=== PATIENT | female | born 1970 | race Caucasian/White ===

== ENCOUNTER 2017-01-12 12:41 | Outpatient (CLI) | payer OTHER ==
--- NOTE | 2017-01-12 15:33 | XRAY Report ---
CHEST TWO VIEWS: 01/12/2017 CLINICAL HISTORY: Cough and wheezing. COMPARISON: Chest CT of 03/17/2011. FINDINGS: The heart is top normal in size. The lungs are clear. There is no pleural fluid or pneumot horax. Bony structures are negative for age. IMPRESSION: NEGATIVE TWO VIEW CHEST X-RAY FOR AGE. JOB #: [id number] EXT JOB #:[id number]
== END 2017-01-12 12:42 | disposition home or self-care (01) ==
LOC: DI 12:41
PROVIDERS: ATTEND Physician Assistant
DX: R05 Cough (principal); R06.2 Wheezing
CPT/HCPCS: 71020

== ENCOUNTER 2019-10-06 15:09 | Outpatient (CLI) | payer OTHER | END 2019-10-06 15:10 | disposition home or self-care (01) | LOC: LAB 15:09 | PROVIDERS: ATTEND Surgery | DX: Z01.818 Encounter for other preprocedural examination (principal); K61.0 Anal abscess | CPT/HCPCS: 81599 ==

== ENCOUNTER 2019-10-10 06:31 | Day surgery (SDC) | payer OTHER ==
[~2019-10-10 06:31] MED LIST: CEFAZOLIN SODIUM IN 0.9 % NACL 2 GM/100 ML BAG IV ONE
[2019-10-10] MEDS ORDERED: KETOROLAC 30 MG/ML VIAL IVP ONE (06:32)
[2019-10-10] MEDS ORDERED: fentaNYL 100 MCG/2 ML VIAL IVP ONE (06:32)
[2019-10-10] MEDS ORDERED: MIDAZOLAM 2 MG/2 ML VIAL IVP ONE (06:32)
[2019-10-10] MEDS ORDERED: PROPOFOL 200 MG/20 ML VIAL IVP ONE (06:32)
[2019-10-10] MEDS ORDERED: LACTATED RINGERS 1,000 ML IV ONE ×2 (06:45→09:26)
--- NOTE | 2019-10-10 07:14 | ANESTHESIA ---
Pre-Anesthesia VS, & Labs - Diagnosis recurrent perianal abscess - Procedure exam under anesthesia, possible banding and/or seton placement Height 5 ft 7 in Weight (kg) 127 kg Body Mass Index 42.0 - NPO >8 hours - Is Patient ?: No - Lab Results Current Lab Results: Laboratory Tests 10/10/19 06:52: POC Whole Bld Glucose 231 H Home Medications and Allergies Home Medications: Ambulatory Orders Insulin Glargine,Hum.rec.anlog [Toujeo Max Solostar] 160 unit SQ DAILY 10/03/19 Multivitamin 1 each PO DAILY 10/03/19 Temazepam [Restoril] 30 mg PO QPM PRN 10/03/19 Albuterol Sulfate [Ventolin Hfa] 2 puffs IH Q4H PRN 05/12/14 Metformin HCl 1,000 mg PO BID 05/12/14 Telmisartan [Micardis] 10 mg PO QPM 05/12/14 Insulin Glargine,Hum.rec.anlog [Toujeo Max Solostar] 160 unit SQ DAILY 10/03/19 Multivitamin 1 each PO DAILY 10/03/19 Temazepam [Restoril] 30 mg PO QPM PRN 10/03/19 Allergies/Adverse Reactions: Allergies Allergy/AdvReac Type Severity Reaction Status Date / Time trazodone Allergy Severe Nausea Verified 10/03/19 15:37 hydromorphone HCl * AdvReac Severe Nausea/Vomm Verified 05/12/14 08:48 [From Dilaudid] iting Anes History & Medical History - Anesthetic History Anesthesia Complications: reports: No previous complications - Medical History Cardiovascular: reports: Hypertension, High cholesterol Pulmonary: reports: Asthma Gastrointestinal: reports: None Urinary: reports: None Musculoskeletal: reports: None Endocrine/Autoimmune: reports: Type 2 diabetes Skin: reports: None Smoking Status: Never smoker - Surgical History General: Other Gynecologic: section, Dilation and currettage, Hysterectomy Exam General: Alert Dental: WNL Mouth Opening: Greater than 4 Fingerbreadths Mallampati classification: II Thyromental Distance: greater than 6 cm Respiratory: Lungs clear Cardiovascular: Regular rate, Normal S1, Normal S2 Mental/Cognitive Status: Alert/Oriented X3 Plan Anesthesia Type: General, MAC Consent for Procedure(s) Verified and Reviewed: Yes Code Status: Attempt Resuscitation ASA classification: 3-Severe systemic disease Is this case an emergency?: No
[2019-10-10] MEDS ORDERED: LIDOCAINE 1%-EPI 1:100000 20 ML MDV ONE (07:18)
[2019-10-10] MEDS ORDERED: BUPIVACAINE 0.5% PF 30 ML VIAL ONE (07:18)
[2019-10-10] MEDS ORDERED: INSULIN REGULAR HUMAN 100 UNIT/1 ML 10 ML MDV ONE (07:26)
[2019-10-10] MEDS ORDERED: INSULIN REGULAR HUMAN 100 UNIT/1 ML 10 ML MDV IVP ONE (07:26)
[2019-10-10] MEDS ORDERED: BUPIVACAINE 0.5% PF 30 ML VIAL INFIL ONE (08:28)
[2019-10-10] MEDS ORDERED: LIDOCAINE 1%-EPI 1:100000 30 ML MDV SUBQ ONE (08:28)
[2019-10-10] MEDS ORDERED: LIDOCAINE OINTMENT 5% 35.44 GM TUBE TOP STA (08:43)
[2019-10-10] MEDS ORDERED: LIDOCAINE 2% URO-JET 5 ML SYRINGE UR ONE (08:45)
--- NOTE | 2019-10-10 08:58 | OPERATIVE REPORT ---
Operative Report - General Procedure Date: 10/10/19 Planned Procedure: Examination under anesthesia with indicated procedure. Pre-Op Diagnosis: Recurrent perianal abscess Procedure Performed: Examination under anesthesia with external hemorrhoidectomy and incision and drainage of cystic lesion Post Op Diagnosis: Perianal inclusion cyst, enlarged and prolapsing external hemorrhoid - Procedure Note Primary Surgeon: Aram Anesthesia Provider: VERO Spence Anesthesia Technique: Local, MAC Pathology: Portions of hemorrhoidal tissue to path in formalin Estimated Blood Loss (mL): 25 Indications: Recurrent perianal abscess and pain Findings: Enlarged and prolapsing external hemorrhoid with associated inclusion cyst Additional inclusion cyst 3 cm from the hemorrhoid. No evidence of perianal fistula Complications: None apparent - Other Other Information/Narrative: After obtaining informed consent, the patient is brought to the operating room and placed in the supine position on the operating table. Following successful induction of deep sedation with monitored anesthesia care, the patient's legs were placed in Pacheco stirrups and the perineal and perianal area were prepped and draped in the standard surgical fashion. A timeout was held per scope protocol. All elements of the surgical safety checklist were followed before, during, and after the procedure. We began the procedure by infiltrating a mixture of local anesthetics in and around to the anus and perianal region.Nation revealed a cystic structure at the 7:00 radian approximately 3 cm from the anal canal. This was opened sharply draining a small amount of purulent fluid. Further examination revealed the nodular area that the patient had pointed out as the site of concern and pain. This area was probed extensively with a anal probe keeping the speculum in the anal canal. We were not able to identify any opening within the anal canal itself. The opening seem to lead to a superficial cystic structure within the dermis of the skin. This was associated with a fairly large and scarred appearing hemorrhoid that prolapsed. I elected to perform an external hemorrhoidectomy and to take the entire cystic structure with hemorrhoidectomy. This was done by applying a chromic suture at the apex of the hemorrhoid. The anoderm was then opened and the vein carefully dissected free from the dermal tissue and the underlying muscle we extended it out laterally and an elliptical incision was created around the cystic structure to include it within the specimen. The wound was checked for hemostasis. The chromic suture was used to close the anoderm and extended onto the perianal skin for approximately 1 cm to close the open incision there. The wound was then checked for hemostasis. It was irrigated with warm saline solution and aspirated free of all fluid. A Gelfoam and did became pack was placed in the anal canal. The open site in the perianal skin was packed with antibiotic impregnated gauze. Dry dressings were applied. All sponge, needle, and instrument counts were correct at the conclusion of the case. The patient was allowed awaken anesthesia without difficulty and taken to the postanesthesia care unit in good condition.
[2019-10-10] MEDS ORDERED: ONDANSETRON 4 MG/2 ML VIAL ONE (09:27)
[2019-10-10 09:47] VITALS: BP 104/55
[2019-10-10] MEDS ORDERED: LIDOCAINE-MPF 2% 5 ML VIAL IM ONE (18:29)
== END 2019-10-10 06:32 | disposition home or self-care (01) ==
LOC: SDS 06:31
PROVIDERS: ATTEND Surgery
PROC: 06BY3ZC Excision of Hemorrhoidal Plexus, Percutaneous Approach (ICD-10-PCS; principal; 2019-10-10 07:30)
DX: K61.0 Anal abscess (principal); L72.0 Epidermal cyst; K64.8 Other hemorrhoids; E66.9 Obesity, unspecified; Z68.41 Body mass index [BMI] 40.0-44.9, adult; I10 Essential (primary) hypertension; E11.9 Type 2 diabetes mellitus without complications; Z79.4 Long term (current) use of insulin
CPT/HCPCS: 46050; 46999; A9270; J0690; J1815; J7120

== ENCOUNTER 2020-02-17 11:50 | Outpatient (CLI) | payer OTHER | END 2020-02-17 11:51 | disposition home or self-care (01) | LOC: COV 11:50 | PROVIDERS: ATTEND Surgery | DX: Z01.812 Encounter for preprocedural laboratory examination (principal); Z20.828 Contact with and (suspected) exposure to other viral communicable diseases; K60.3 Anal fistula ==

== ENCOUNTER 2020-02-20 06:21 | Day surgery (SDC) | payer OTHER ==
[2020-02-20] MEDS ORDERED: MIDAZOLAM 2 MG/2 ML VIAL IVP ONE (06:22)
[2020-02-20] MEDS ORDERED: PROPOFOL 200 MG/20 ML VIAL IVP ONE (06:22)
[2020-02-20] MEDS ORDERED: KETAMINE 500 MG/10 ML VIAL IVP ONE (06:22)
[2020-02-20] MEDS ORDERED: LACTATED RINGERS 1,000 ML IV ONE ×2 (06:25→08:50)
[2020-02-20 06:49] LABS: HCG UR QUAL NEGATIVE
--- NOTE | 2020-02-20 07:11 | ANESTHESIA ---
Pre-Anesthesia VS, & Labs - Diagnosis Anal Fistula - Procedure EUA with seton placement Vital Signs: Temp Pulse Resp BP Pulse Ox 36.4 C L 98 12 118/57 L 95 02/20/20 06:26 02/20/20 06:26 02/20/20 06:26 02/20/20 06:26 02/20/20 06:26 Height: 5 ft 7 in Weight (kg): 126.8 kg Body Mass Index: 43.7 BMI Classification: Morbidly Obese - NPO >8 hours - Is Patient ?: No Home Medications and Allergies Home Medications: Ambulatory Orders Aspirin [Aspirin EC] 81 mg PO DAILY 02/16/20 Liraglutide [Victoza 2-Jose] 0.6 mg SQ DAILY 02/16/20 Zolpidem Tartrate [Ambien Cr] 12.5 mg PO QPM 02/16/20 Albuterol Sulfate [Ventolin Hfa] 2 puffs IH Q4H PRN 05/12/14 Metformin HCl 500 mg PO BID 05/12/14 Telmisartan [Micardis] 5 mg PO QPM 05/12/14 Insulin Glargine,Hum.rec.anlog [Toujeo Max Solostar] 180 unit SQ DAILY 10/03/19 Multivitamin 1 each PO DAILY 10/03/19 Aspirin [Aspirin EC] 81 mg PO DAILY 02/16/20 Liraglutide [Victoza 2-Jose] 0.6 mg SQ DAILY 02/16/20 Zolpidem Tartrate [Ambien Cr] 12.5 mg PO QPM 02/16/20 Allergies/Adverse Reactions: Allergies Allergy/AdvReac Type Severity Reaction Status Date / Time trazodone Allergy Severe Nausea Verified 10/03/19 15:37 walnut Allergy Anaphylaxis Verified 02/16/20 10:14 hydromorphone HCl * AdvReac Severe Nausea/Vomm Verified 05/12/14 08:48 [From Dilaudid] analilia Humphriess History & Medical History - Anesthetic History Anesthesia Complications: reports: No previous complications - Medical History Cardiovascular: reports: Hypertension, High cholesterol Pulmonary: reports: Asthma, Sleep apnea (not treated) Gastrointestinal: reports: None Urinary: reports: None Neuro: reports: Peripheral neuropathy Musculoskeletal: reports: None Endocrine/Autoimmune: reports: Type 2 diabetes (16 years) Skin: reports: None Smoking Status: Never smoker Psychosocial: reports: No issues indicated History of Cancer?: No - Surgical History General: Other (anal fissure repair) Gynecologic: section, Dilation and currettage, Hysterectomy Exam General: Alert, Oriented x3, Cooperative, No acute distress Dental: WNL Mouth Openin Fingerbreadth Neck Mobility: Normal Mallampati classification: II Thyromental Distance: 4-6 cm Mental/Cognitive Status: Alert/Oriented X3, Normal for patient Plan Anesthesia Type: General Consent for Procedure(s) Verified and Reviewed: Yes Code Status: Attempt Resuscitation ASA classification: 3-Severe systemic disease Is this case an emergency?: No
[2020-02-20] MEDS ORDERED: LIDOCAINE OINTMENT 5% 35.44 GM TUBE ONE (07:29)
[2020-02-20] MEDS ORDERED: LIDOCAINE 1%-EPI 1:100000 20 ML MDV ONE (07:29)
[2020-02-20] MEDS ORDERED: BUPIVACAINE 0.5% PF 30 ML VIAL ONE (07:29)
[2020-02-20] MEDS ORDERED: BUPIVACAINE 0.5% PF 30 ML VIAL INFIL ONE ×2 (08:29)
[2020-02-20] MEDS ORDERED: LIDOCAINE 1%-EPI 1:100000 30 ML MDV SUBQ ONE ×2 (08:30)
[2020-02-20] MEDS ORDERED: ONDANSETRON 4 MG/2 ML VIAL ONE (09:18)
[2020-02-20] MEDS ORDERED: oxyCODONE 5 MG TABLET PO PRN (09:22)
[2020-02-20] MEDS ORDERED: ONDANSETRON 4 MG/2 ML VIAL IVP PRN (09:22)
[2020-02-20 09:31] VITALS: BP 124/66
--- NOTE | 2020-02-20 12:18 | ANESTHESIA POST OP EVALUATION ---
Anesthesia Post Eval - Post Anesthesia Eval Vitals: Last Vital Signs Temp 36.1 C L 02/20/20 08:51 Pulse 87 02/20/20 09:30 Resp 16 02/20/20 09:30 BP 124/66 02/20/20 09:30 Pulse Ox 100 02/20/20 09:30 CV Function Including HR & BP: positive: Stable Pain Control: positive: Satisfactory Nausea & Vomiting: positive: Negative Mental Status: positive: Baseline Respiratory Status: Airway Patent Hydration Status: Satisfactory
--- NOTE | 2020-02-26 14:46 | OPERATIVE REPORT ---
Operative Report - General Planned Procedure: Examination under anesthesia with Seton placement Pre-Op Diagnosis: Anal fistula Procedure Performed: Examination under anesthesia with incision and drainage of abscess and seton placement Post Op Diagnosis: Anal fistula and large perianal abscess - Procedure Note Primary Surgeon: Aram Anesthesia Provider: VERO Mix Pathology: None Estimated Blood Loss (mL): 5 Indications: Recurrent peranal abscess with fistula Findings: 1. 2 cm abscess cavity 1 cm lateral to the anus on the right side 2. 1.5 cm fistula at 7 o'clock. The opening is just inside the anal opening in the mucosa. Appears to involve only the most distal portion of the external spincter. Complications: None apparent - Other Other Information/Narrative: After obtaining informed consent, the patient is brought to the operating room and placed im the supine position on the operating table. Following successful induction of anesthesia, the patient's legs were placed in stirrups for lithotomy position and all bony prominences padded. The perineal and perianal area were prepped and draped in the standard surgical fashion. A Time Out was help per scope protocol. All elements of the surgical safety check list were followed before, during and after the procedure. The perianal region was carefully examined. A 2 cm abscess cavity was noted on the right lateral side with the most inferior aspect of the cavity appearing to communicate with the fistula opening. The skin over the abscess was opened sharpley draining purulent but non foul smelling contents. The cavity was linder perficial. An obturator was placed in the anal opening. A probe was used to track the fistula opening into the anus just proximal to the opening. The appeared to cross only the most distal portion of the external sphincter. A seton was placed in the eye of the probe and pulled through the fistula opening. The two ends of the seton were then tied with moderate tensions using a 3-0 silk suture. The wound was then checked for hemostasis and dressed with gel foam and iodoform gauze. All sponge, needle, and instrument counts were correct at the conclusion of the case. The patient was allowed to waken from anesthesia without difficulty and taken to the post anesthesia care unit in good condition.
== END 2020-02-20 06:22 | disposition home or self-care (01) ==
LOC: SDS 06:21
PROVIDERS: ATTEND Surgery
DX: K61.0 Anal abscess (principal); E66.01 Morbid (severe) obesity due to excess calories; Z68.41 Body mass index [BMI] 40.0-44.9, adult; E11.9 Type 2 diabetes mellitus without complications
CPT/HCPCS: 46020; 46270; 81025; J7120

== ENCOUNTER 2020-11-26 11:16 | Outpatient (CLI) | payer OTHER ==
[2020-11-26 16:40] LABS: ALBUMIN 3.6 g/dL (3.2-5.5); ALBUMIN/GLOBULIN RATIO 1.1 (1.0-2.2); BILIRUBIN,TOTAL 0.6 mg/dL (0.2-1.0); CREATININE 0.6 mg/dL (0.4-1.0); TOTAL PROTEIN 6.8 g/dL (6.7-8.2)
[2020-11-26 16:55] LABS: MICROALBUM/CREATININE RATIO,UR 3.9 ug/mg (<30.0); MICROALBUMIN,URINE 0.9 mg/dL (0-300.0)
[2020-11-26 20:06] LABS: ESTIMATED AVERAGE GLUCOSE 217 mg/dL (70-100); HEMOGLOBIN A1c% 9.2 % (4.27-6.07)
== END 2020-11-26 11:17 | disposition home or self-care (01) ==
LOC: LAB.S 11:16
PROVIDERS: ATTEND Registered Nurse
DX: E11.9 Type 2 diabetes mellitus without complications (principal)
CPT/HCPCS: 36415; 80053; 82043; 82570; 83036

== ENCOUNTER 2021-11-25 08:00 | Outpatient (CLI) | payer OTHER ==
[2021-11-25 19:48] LABS: BILIRUBIN,URINE NEGATIVE (NEGATIVE); GLUCOSE, URINE (UA) NEGATIVE (NEGATIVE); KETONES,URINE (UA) NEGATIVE (NEGATIVE); LEUKOCYTE ESTERASE, URINE NEGATIVE (NEGATIVE); NITRITE,URINE NEGATIVE (NEGATIVE); OCCULT BLOOD,URINE NEGATIVE (NEGATIVE); PH,URINE 5.5 PH (5.0-7.5); PROTEIN,URINE NEGATIVE (NEGATIVE); UROBILINOGEN,URINE 0.2 (NORMAL) E.U./dL (NORMAL)
[2021-11-25 20:03] LABS: AMORPHOUS SEDIMENT,UR Marked /LPF; BACTERIA,URINE Rare /HPF (None Seen); CLARITY,URINE CLOUDY (CLEAR); RBC,URINE 0-5 /HPF (0-5); SQUAMOUS EPITHELIAL CELL,UR RARE Squamous (<= Few); WBC,URINE 0-3 /HPF (0-5)
== END 2021-11-25 23:59 | disposition home or self-care (01) ==
LOC: LAB.S 08:00
PROVIDERS: ATTEND Physician Assistant Medical
DX: R30.0 Dysuria (principal)
CPT/HCPCS: 81001; 87086

== ENCOUNTER 2022-08-28 14:32 | Outpatient (CLI) | payer OTHER ==
--- NOTE | 2022-09-01 09:15 | Mammography Report ---
BILATERAL DIGITAL SCREENING MAMMOGRAM 3D/2D: 08/28/2022 CLINICAL: Routine screening. Comparison is made to exams dated: 09/18/2015 mammogram, 04/04/2014 mammogram, and 07/21/2013 mammogram - [facility]. There are scattered areas of fibroglandular density in both breasts (category b / 25%-50% glandular t issue). No significant masses, calcifications, or other findings are seen in either breast. There has been no significant interval change. IMPRESSION: NEGATIVE There is no mammographic evidence of malignancy. A 1 year screening mammogram is recommended. Based on the Tyrer Cuzick model (a risk assessment model) the patients lifetime risk is 5.7% and her 10 year risk is 1.4%. According to the ACR, ACS, and NCCN guidelines, an annual breast MRI exam malaika g with mammogram is recommended if the patients lifetime risk is 20% or greater. This exam was interpreted at Station ID: [id number]. NOTE: For mammograms, a report in lay terms will be sent to the patient. Approximately 15% of breast malignancies will not be visualized mammographically. In the management of a palpable breast mass, a negative mammogram must not discourage biopsy of a clinically suspicious lesion. Electronically Signed By: Spencer richter/elizabeth:08/29/2022 10:30:26 letter sent: No_Letter ACR BI-RADS Category 1: Negative 3341F PARENCHYMAL PATTERN: (A) - The breast(s) demonstrate(s) scattered fibroglandular densities. BI-RADS CATEGORY: (1) - 1 Mammogram [id number] 1 year screening LATERALITY: (B)
== END 2022-08-28 14:33 | disposition home or self-care (01) ==
LOC: DI 14:32
PROVIDERS: ATTEND Registered Nurse
DX: Z12.31 Encounter for screening mammogram for malignant neoplasm of breast (principal)

== ENCOUNTER 2023-04-06 11:11 | Outpatient (CLI) | payer OTHER ==
[2023-04-06 17:09] LABS: ESTIMATED AVERAGE GLUCOSE 169 mg/dL (70-100); HEMOGLOBIN A1c% 7.5 % (4.27-6.07)
== END 2023-04-06 11:12 | disposition home or self-care (01) ==
LOC: LAB.S 11:11
PROVIDERS: ATTEND Registered Nurse
DX: E11.9 Type 2 diabetes mellitus without complications (principal)
CPT/HCPCS: 36415; 83036

== ENCOUNTER 2023-09-09 19:10 | Outpatient (CLI) | payer OTHER ==
--- NOTE | 2023-09-10 13:17 | Ultrasound Report ---
PROCEDURE: Soft Tissue Head or Neck INDICATIONS: THYROID NODULE TECHNIQUE: Real-time scanning was performed of the thyroid gland, with image documentation. COMPARISON: None FINDINGS: Right: Thyroid lobe measures 5.6 x 2.1 x 2.3 cm. Left: Thyroid lobe measures 5.5 x 1.9 x 2.1 cm Isthmus: 0.5 cm thick. Echotexture: Homogenous enlarged gland Multiple subcentimeter nodules are seen, not requiring dedicated follow-up per TI RADS criteria IMPRESSION: Homogenous enlarged thyroid parenchyma. No discrete nodules requiring dedicated follow-up identified. Nodules measure 1 cm or smaller. ACR TI-RADS definitions and recommendations: TI-RADS 1 (benign): 0 points. FNA not needed. TI-RADS 2 (not suspicious): 2 points. FNA not needed. TI-RADS 3 (mildly suspicious): 3 points. "FNA if 2.5 cm or larger, follow up if 1.5 cm or larger (at 1, 3, and 5 years). TI-RADS 4 (moderately suspicious): 4-6 points. "FNA if 1.5 cm or larger, follow up if 1 cm or larger (at 1, 2, 3, and 5 years). TI-RADS 5 (highly suspicious): 7 points or more. "FNA if 1 cm or larger, follow up if 0.5 cm or larger (every year for 5 years). Reviewed by: Armand Arciniega MD on 09/10/2023 1:16 PM PDT Approved by: Armand Arciniega MD on 09/10/2023 1:16 PM PDT Station ID: [id number]
== END 2023-09-09 19:11 | disposition home or self-care (01) ==
LOC: DI 19:10
PROVIDERS: ATTEND Registered Nurse
DX: E04.2 Nontoxic multinodular goiter (principal)